=== PATIENT | female | born 1965 | race Caucasian/White ===

== ENCOUNTER 2017-02-05 10:03 | Emergency (ER) | payer SELFPAY ==
--- NOTE | 2017-02-05 11:02 | ER Document Report ---
ED Medical Screen (RME) - General Mode of Arrival: Ambulatory Information source: Patient TRAVEL OUTSIDE OF THE [place] IN LAST 30 DAYS: No <BELLA BYRD - Last Filed: 02/05/17 12:02> <CHRISTIANO REEDER - Last Filed: 02/05/17 15:58> - General Chief Complaint: Chest Pain > 30 Stated Complaint: CHEST PAIN Time Seen by Provider: 02/05/17 10:57 Notes: Patient reports upper abdominal pain off and on for 2 weeks with diarrhea for the last week. Patient also states she has had heart palpitations. Patient states she has had 3 days of chest pain and it hurts to touch her chest. Patient has a history of C. difficile. (BELLA BYRD) - Related Data Allergies/Adverse Reactions: No Known Allergies Allergy (Verified 02/05/17 10:51) Past Medical History - General Information source: Patient - Social History Cigarette use (# per day): Yes Chew tobacco use (# tins/day): No Frequency of alcohol use: None Drug Abuse: Marijuana Renal/ Medical History: Denies: Hx Peritoneal Dialysis Past Surgical History: Reports: Hx Abdominal Surgery - abdominoplasy, Hx Section, Hx Tubal Ligation - Immunizations Hx Diphtheria, Pertussis, Tetanus Vaccination: No <BELLA BYRD - Last Filed: 02/05/17 12:02> Review of Systems - Review of Systems Cardiovascular: See HPI, Palpitations Gastrointestinal: See HPI, Abdominal pain, Diarrhea <BELLA BYRD - Last Filed: 02/05/17 12:02> Physical Exam <BELLA BYRD - Last Filed: 02/05/17 12:02> <CHRISTIANO REEDER - Last Filed: 02/05/17 15:58> - Vital signs Vitals: Temp Pulse Resp BP Pulse Ox 99.0 F 78 18 126/81 H 100 02/05/17 10:29 02/05/17 10:29 02/05/17 10:29 02/05/17 10:29 02/05/17 10:29 - Notes Notes: Physical Exam: General: Alert, appears well. HEENT: Normocephalic. Atraumatic. PERRLA. Extraocular movements intact. Oropharynx clear. Neck: Supple. Respiratory: No respiratory distress. Abdominal: Minimal epigastric tenderness with palpation. No distension. Extremities: Moves all four extremities. Neurological: Normal cognition. AAOx4. Normal speech. Psychological: Normal affect. Normal Mood. Skin: Warm. Dry. Normal color. (BELLA BYRD) Course - Laboratory Result Diagrams: 02/05/17 11:12 02/05/17 11:12 <BELLA BYRD - Last Filed: 02/05/17 12:02> - Laboratory Result Diagrams: 02/05/17 11:12 02/05/17 11:12 <CHRISTIANO REEDER - Last Filed: 02/05/17 15:58> - Re-evaluation Re-evalutation: 02/05/17 14:19 The patient was stopping the nurses asking for pain medication. A later was told that she refused to try the Flagyl because she was concerned she would vomit it back up. Her urine specific gravity is (CHRISTIANO REEDER) - Vital Signs Vital signs: Temp Pulse Resp BP Pulse Ox 99.0 F 78 12 102/66 99 02/05/17 10:29 02/05/17 10:29 02/05/17 12:01 02/05/17 12:00 02/05/17 12:01 - Laboratory Laboratory results interpreted by me: 02/05/17 11:12 Glucose 71 L Doctor's Discharge <BELLA BYRD - Last Filed: 02/05/17 12:02> <CHRISTIANO REEDER - Last Filed: 02/05/17 15:58> - Discharge Clinical Impression: Clostridium difficile colitis, Chest wall pain, Muscle tension headache Condition: Stable Disposition: HOME, SELF-CARE Additional Instructions: C. (Clostridium) Difficile Infection: C. difficile bacteria are everywhere - in soil, air, water, human and animal feces, and on most surfaces. The bacteria don't create problems until they grow in abnormally large numbers in the intestinal tract of people taking antibiotics or other antimicrobial drugs. Then, C. difficile can cause symptoms ranging from diarrhea to life-threatening inflammations of the colon. According to the Centers for Disease Control and Prevention, each year in the [place] C. difficile is responsible for tens of thousands of cases of diarrhea and at least 5,000 deaths. And the problem is getting worse. The number of C. difficile infections doubled between 1992 and 2002, with most of the increase coming after 1999. Your intestinal tract contains hundreds of kinds of bacteria (intestinal silver). Many are essential, helping to synthesize certain vitamins and stimulating the immune system. And some play a mejia role in suppressing the growth of harmful organisms. But when you take an antibiotic to treat an infection, it often destroys these beneficial bacteria as well as the bacteria that's causing your illness. Without enough healthy bacteria, dangerous pathogens such as C. difficile can quickly grow out of control. Once it takes hold, C. difficile can produce two virulent toxins that attack the lining of the intestine. The toxins destroy cells and produce pseudomembranes - telltale patches (plaques) of inflammatory cells and decaying cellular debris on the interior surface of the colon. Almost any antibiotic can cause harmful bacteria to proliferate in the intestine, but ampicillin, amoxicillin, clindamycin, fluoroquinolones and cephalosporins are most often implicated in C. difficile infections. The use of broad-spectrum drugs that target a wide range of bacteria and the taking of antibiotics for a prolonged period increase the chance of infection. Other antimicrobials, including antiviral and antifungal drugs, and chemotherapy medications also can lead to an increased risk of infection with C. difficile. It's also a growing problem among otherwise healthy people. And although the infection can usually be controlled with antibiotics, virulent strains of C. difficile are now appearing that resist treatment with common medications. Chest Wall Pain: Your chest pain has been diagnosed as coming from the chest wall. This is often caused by straining the muscles or joints in the chest during physical activity, direct trauma, coughing, or vigorous vomiting. Persons with arthritis are especially prone to this type of pain, due to inflammation of the cartilage joints near the breast bone. Occasionally, no cause can be found. Rest from strenuous physical activity. This kind of chest pain is usually made worse by movement of the chest. Depending on the symptoms, we may recommend Motrin or Aleve for pain and antiinflammatory effects. Apply gentle warmth to the painful area for 15 minutes every hour or two. You should contact the doctor immediately if things change. Further evaluation is needed if you develop a fever or cough, if the nature of the pain changes, or if you become short of breath. Tension Headache: Your problem has been diagnosed as muscle tension headache. This very common type of headache occurs because of tightness in the muscles of the head and neck. The cause may be neck or jaw joint problems, but most commonly the cause is emotional stress. The headache may last hours or days. The treatment of uncomplicated tension headaches is rest and pain medication. Often, antiinflammatory pain medications are recommended, as these decrease the irritability of the painful tissues. Cold packs, or warm packs are sometimes helpful. Anti-anxiety medication or narcotics are best avoided in the long run. Your doctor has evaluated your headache problem, and finds no evidence of a serious health problem as a cause for the headache. If your headache becomes more severe, or if new symptoms develop (such as fever, stiff neck, vomiting, or decreasing alertness) you should be re-examined by the physician. TAKE THE MEDICATIONS PRESCRIBED. TAKE PRECAUTIONS TO PREVENT SPREAD OF THE C.-Diff FOLLOW UP WITH A LOCAL MEDICAL DOCTOR IF NOT IMPROVING. RETURN TO THE EMERGENCY ROOM IF ANY NEW OR WORSENING SYMPTOMS. Prescriptions: Metronidazole [Flagyl 500 mg Tablet] 500 mg PO TID #30 tablet Promethazine HCl [Phenergan 25 mg Tablet] 25 mg PO ASDIR PRN #15 tablet PRN Reason: For Nausea/Vomiting Scribe Documentation - Scribe Written by Hortensia:: Hortensia Flood, 02/05/2017 1220 acting as scribe for :: José Miguel <BELLA BYRD - Last Filed: 02/05/17 12:02>
[2017-02-05 11:33] LABS: ABSOLUTE BASOPHILS # (AUTO) 0.1 10^3/uL (0.0-0.2); ABSOLUTE EOSINOPHILS # (AUTO) 0.1 10^3/uL (0.0-0.6); ABSOLUTE LYMPHOCYTES (AUTO) 1.9 10^3/uL (0.5-4.7); ABSOLUTE MONOCYTES (AUTO) 0.5 10^3/uL (0.1-1.4); EOSINOPHILS % (AUTO) 1.1 % (0-6); HEMATOCRIT 38.3 % (36.0-47.0); HEMOGLOBIN 13.3 g/dL (12.0-15.5); HGB HCT DIFFERENCE 1.6; LYMPHOCYTES % (AUTO) 19.7 % (13-45); MEAN CORPUSCULAR HEMOGLOBIN 32.7 pg (27.0-33.4); MEAN CORPUSCULAR HGB CONC 34.8 g/dL (32.0-36.0); MEAN CORPUSCULAR VOLUME 94 fl (80-97); MONOCYTES % (AUTO) 5.3 % (3-13); RED BLOOD COUNT 4.08 10^6/uL (3.72-5.28); RED CELL DISTRIBUTION WIDTH 13.5 % (11.5-14.0); SEGMENTED NEUTROPHILS % (AUTO) 72.9 % (42-78); WHITE BLOOD COUNT 9.6 10^3/uL (4.0-10.5)
[2017-02-05 11:38] LABS: APPEARANCE,URINE SLIGHTLY-CLOUDY; BILIRUBIN,URINE NEGATIVE (NEGATIVE); GLUCOSE, URINE NEGATIVE (NEGATIVE); KETONES,URINE NEGATIVE (NEGATIVE); LEUKOCYTE ESTERASE,URINE NEGATIVE (NEGATIVE); NITRITE,URINE NEGATIVE (NEGATIVE); PROTEIN,URINE NEGATIVE (NEGATIVE); URINE SPECIFIC GRAVITY 1.002; UROBILINOGEN,URINE NEGATIVE mg/dL (<2.0)
[2017-02-05 11:44] LABS: ALANINE AMINOTRANSFERASE 38 U/L (9-52); ALBUMIN 4.6 g/dL (3.5-5.0); ALKALINE PHOSPHATASE 55 U/L (38-126); ANION GAP 13 (5-19); ASPARTATE AMINO TRANSFERASE 25 U/L (14-36); BILIRUBIN,DIRECT 0.3 mg/dL (0.0-0.4); BILIRUBIN,TOTAL 0.5 mg/dL (0.2-1.3); BLOOD UREA NITROGEN 10 mg/dL (7-20); CALCIUM 9.9 mg/dL (8.4-10.2); CARBON DIOXIDE 27 mmol/L (22-30); CHLORIDE 104 mmol/L (98-107); CREATININE RESULT 0.73 mg/dL (0.52-1.25); GLUCOSE 71 mg/dL (75-110); LIPASE 54.4 U/L (23-300); POTASSIUM 4.7 mmol/L (3.6-5.0); SODIUM 143.9 mmol/L (137-145); TOTAL PROTEIN 6.8 g/dL (6.3-8.2)
--- NOTE | 2017-02-05 12:58 | ER Document Report ---
ED General - General Mode of Arrival: Ambulatory Information source: Patient TRAVEL OUTSIDE OF THE [place] IN LAST 30 DAYS: No - HPI Patient complains to provider of: Diarrhea and abdominal pain Onset: Other - 2 weeks ago Associated symptoms: Other - see notes above <SONI TURNER - Last Filed: 02/05/17 13:32> <CHRISTIANO REEDER - Last Filed: 02/05/17 15:58> - General Chief Complaint: Chest Pain > 30 Stated Complaint: CHEST PAIN Time Seen by Provider: 02/05/17 10:57 Notes: 51 year old female with history of C. Diff presents to the ED complaining of diarrhea that started a little over 2 weeks ago and a burning abdominal pain that started 3 days ago. Patient states that her daughters have also been having symptoms of C. Diff over the past 2 weeks. Patient additionally complains of nausea, headache, and chest pain that started today. Patient states that the chest pain alarmed her and is why she came in. Patient has taken 15 mg oxycodone twice yesterday and once this morning. (SONI TURNER) - Related Data Allergies/Adverse Reactions: No Known Allergies Allergy (Verified 02/05/17 10:51) Past Medical History - General Information source: Patient - Social History Smoking Status: Current Every Day Smoker Cigarette use (# per day): Yes Chew tobacco use (# tins/day): No Frequency of alcohol use: None Drug Abuse: Marijuana Family History: Reviewed & Not Pertinent Patient has suicidal ideation: No Patient has homicidal ideation: No Renal/ Medical History: Denies: Hx Peritoneal Dialysis Past Surgical History: Reports: Hx Abdominal Surgery - abdominoplasy, Hx Section, Hx Tubal Ligation - Immunizations Hx Diphtheria, Pertussis, Tetanus Vaccination: No <SONI TURNER - Last Filed: 02/05/17 13:32> Review of Systems - Review of Systems Constitutional: No symptoms reported EENT: No symptoms reported Cardiovascular: See HPI, Chest pain Respiratory: No symptoms reported Gastrointestinal: See HPI, Abdominal pain, Diarrhea, Nausea Genitourinary: No symptoms reported Female Genitourinary: No symptoms reported Musculoskeletal: No symptoms reported Skin: No symptoms reported Hematologic/Lymphatic: No symptoms reported Neurological/Psychological: No symptoms reported -: Yes All other systems reviewed and negative <SONI TURNER - Last Filed: 02/05/17 13:32> Physical Exam - General General appearance: Alert In distress: None - HEENT Head: Atraumatic, Tenderness - frontal muscles. No: Normocephalic Eyes: Normal Extraocular movements intact: Yes Pupils: PERRL Neck: Other - posterior cervical muscles are minimally tender to palpate - Respiratory Respiratory status: No respiratory distress Chest status: Tender Breath sounds: Normal Chest palpation: Tender - left anterior chest wall is very tender. No: Normal - Cardiovascular Rhythm: Regular Heart sounds: Normal auscultation - Abdominal Inspection: Normal Distension: No distension Bowel sounds: Normal Tenderness: Nontender - Extremities General upper extremity: Normal inspection, Normal ROM General lower extremity: Normal inspection, Normal ROM - Neurological Neuro grossly intact: Yes - Psychological Associated symptoms: Normal affect, Normal mood - Skin Skin Temperature: Warm Skin Moisture: Dry Skin Color: Normal <SONI TURNER - Last Filed: 02/05/17 13:32> - Vital signs Vitals: Temp Pulse Resp BP Pulse Ox 99.0 F 78 18 126/81 H 100 02/05/17 10:29 02/05/17 10:29 02/05/17 10:29 02/05/17 10:29 02/05/17 10:29 Course - Laboratory Result Diagrams: 02/05/17 11:12 02/05/17 11:12 <SONI TURNER - Last Filed: 02/05/17 13:32> - Laboratory Result Diagrams: 02/05/17 11:12 02/05/17 11:12 <CHRISTIANO REEDER - Last Filed: 02/05/17 15:58> - Re-evaluation Re-evalutation: 02/05/17 14:20 The patient has been asking the nurse for pain medication. I was later informed that she refused to try the oral Flagyl out of concern she would vomit it back up. Her urine specific gravity is 1.002, and she has not been on any IV fluids. I will have the nurse start an IV to administer the antibiotics. (CHRISTIANO REEDER ) - Vital Signs Vital signs: Temp Pulse Resp BP Pulse Ox 99.0 F 78 12 102/66 99 02/05/17 10:29 02/05/17 10:29 02/05/17 12:01 02/05/17 12:00 02/05/17 12:01 - Laboratory Laboratory results interpreted by me: 02/05/17 11:12 Glucose 71 L Discharge <SONI TURNER - Last Filed: 02/05/17 13:32> <CHRISTIANO REEDER - Last Filed: 02/05/17 15:58> - Discharge Clinical Impression: Clostridium difficile colitis, Chest wall pain, Muscle tension headache Condition: Stable Disposition: HOME, SELF-CARE Additional Instructions: C. (Clostridium) Difficile Infection: C. difficile bacteria are everywhere - in soil, air, water, human and animal feces, and on most surfaces. The bacteria don't create problems until they grow in abnormally large numbers in the intestinal tract of people taking antibiotics or other antimicrobial drugs. Then, C. difficile can cause symptoms ranging from diarrhea to life-threatening inflammations of the colon. According to the Centers for Disease Control and Prevention, each year in the [place] C. difficile is responsible for tens of thousands of cases of diarrhea and at least 5,000 deaths. And the problem is getting worse. The number of C. difficile infections doubled between 1992 and 2002, with most of the increase coming after 1999. Your intestinal tract contains hundreds of kinds of bacteria (intestinal silver). Many are essential, helping to synthesize certain vitamins and stimulating the immune system. And some play a mejia role in suppressing the growth of harmful organisms. But when you take an antibiotic to treat an infection, it often destroys these beneficial bacteria as well as the bacteria that's causing your illness. Without enough healthy bacteria, dangerous pathogens such as C. difficile can quickly grow out of control. Once it takes hold, C. difficile can produce two virulent toxins that attack the lining of the intestine. The toxins destroy cells and produce pseudomembranes - telltale patches (plaques) of inflammatory cells and decaying cellular debris on the interior surface of the colon. Almost any antibiotic can cause harmful bacteria to proliferate in the intestine, but ampicillin, amoxicillin, clindamycin, fluoroquinolones and cephalosporins are most often implicated in C. difficile infections. The use of broad-spectrum drugs that target a wide range of bacteria and the taking of antibiotics for a prolonged period increase the chance of infection. Other antimicrobials, including antiviral and antifungal drugs, and chemotherapy medications also can lead to an increased risk of infection with C. difficile. It's also a growing problem among otherwise healthy people. And although the infection can usually be controlled with antibiotics, virulent strains of C. difficile are now appearing that resist treatment with common medications. Chest Wall Pain: Your chest pain has been diagnosed as coming from the chest wall. This is often caused by straining the muscles or joints in the chest during physical activity, direct trauma, coughing, or vigorous vomiting. Persons with arthritis are especially prone to this type of pain, due to inflammation of the cartilage joints near the breast bone. Occasionally, no cause can be found. Rest from strenuous physical activity. This kind of chest pain is usually made worse by movement of the chest. Depending on the symptoms, we may recommend Motrin or Aleve for pain and antiinflammatory effects. Apply gentle warmth to the painful area for 15 minutes every hour or two. You should contact the doctor immediately if things change. Further evaluation is needed if you develop a fever or cough, if the nature of the pain changes, or if you become short of breath. Tension Headache: Your problem has been diagnosed as muscle tension headache. This very common type of headache occurs because of tightness in the muscles of the head and neck. The cause may be neck or jaw joint problems, but most commonly the cause is emotional stress. The headache may last hours or days. The treatment of uncomplicated tension headaches is rest and pain medication. Often, antiinflammatory pain medications are recommended, as these decrease the irritability of the painful tissues. Cold packs, or warm packs are sometimes helpful. Anti-anxiety medication or narcotics are best avoided in the long run. Your doctor has evaluated your headache problem, and finds no evidence of a serious health problem as a cause for the headache. If your headache becomes more severe, or if new symptoms develop (such as fever, stiff neck, vomiting, or decreasing alertness) you should be re-examined by the physician. TAKE THE MEDICATIONS PRESCRIBED. TAKE PRECAUTIONS TO PREVENT SPREAD OF THE C.-Diff FOLLOW UP WITH A LOCAL MEDICAL DOCTOR IF NOT IMPROVING. RETURN TO THE EMERGENCY ROOM IF ANY NEW OR WORSENING SYMPTOMS. Prescriptions: Metronidazole [Flagyl 500 mg Tablet] 500 mg PO TID #30 tablet Promethazine HCl [Phenergan 25 mg Tablet] 25 mg PO ASDIR PRN #15 tablet PRN Reason: For Nausea/Vomiting Scribe Attestation: 02/05/17 14:00 I personally performed the services described in the documentation, reviewed and edited the documentation which was dictated to the scribe in my presence, and it accurately records my words and actions. (CHRISTIANO REEDER) Scribe Documentation - Scribe Written by Hortensia:: Hortensia Mesa, 02/05/2017 1307 acting as scribe for :: [place] <SONI TURNER - Last Filed: 02/05/17 13:32>
[2017-02-05] MEDS ORDERED: METRONIDAZOLE 500 MG TABLET PO ONE (13:00)
[2017-02-05] MEDS ORDERED: ONDANSETRON HCL INJ/PF 4 MG/2 ML SDV IV ONE ×2 (13:03→14:18)
--- NOTE | 2017-02-05 13:03 | EKG REPORT ---
SEVERITY:- BORDERLINE ECG - SINUS RHYTHM PROBABLE LEFT ATRIAL ABNORMALITY : Confirmed by: Mulugeta Francis MD 05-Feb-2017 13:02:51
[2017-02-05] MEDS ORDERED: ONDANSETRON 4 MG TAB.RAPDIS PO ONE (13:26)
[2017-02-05] MEDS ORDERED: OXYCODONE-ACETAMINOPHEN 5-325 MG TABLET PO ONE (14:12)
[2017-02-05] MEDS ORDERED: METRONIDAZOLE 500 MG/NS RTU 100 ML IV ONE (14:18)
[2017-02-05] MEDS ORDERED: KETOROLAC TROMETHAMINE INJ/PF 30 MG/1 ML SDV IV ONE (14:18)
[2017-02-05 16:51] VITALS: BP 127/78
== END 2017-02-05 16:44 | disposition home or self-care (01) ==
LOC: ER 10:03
DX: A04.72 Enterocolitis due to Clostridium difficile, not specified as recurrent (principal); G44.209 Tension-type headache, unspecified, not intractable; R07.89 Other chest pain; R10.9 Unspecified abdominal pain; F17.210 Nicotine dependence, cigarettes, uncomplicated; Z98.51 Tubal ligation status
CPT/HCPCS: 93005; 99285; 96375; 96365; 36415; 83690; 85025; 80053; 81001; 84484; 87493; 93010; S0119; J1885; J2405

== ENCOUNTER 2018-06-16 21:30 | Emergency (ER) | payer SELFPAY ==
[2018-06-16] MEDS ORDERED: NORMAL SALINE 1000 ML 1,000 ML IV ONE (22:03)
[2018-06-16] MEDS ORDERED: OXYCODONE-ACETAMINOPHEN 5-325 MG TABLET PO ONE (22:04)
--- NOTE | 2018-06-16 22:07 | ER Document Report ---
ED Medical Screen (RME) - General Chief Complaint: Nausea/Vomiting/Diarrhea Stated Complaint: NAUSEA,VOMITNG Time Seen by Provider: 06/16/18 22:03 Notes: 52-year-old female coming in today with chief complaint of severe abdominal discomfort and diarrhea. She reports history of C. difficile colitis in the past. States the diarrhea and the pain is similar. Also epigastric and right upper quadrant pain that radiates through to her back which is not typical for anything she has had before. She does not have any fevers or shaking chills. I have treated and performed a rapid initial assessment of this patient. A comprehensive ED assessment and evaluation of the patient, analysis of test results and completion of medical decision making process will be conducted by additional ED providers. PHYSICAL EXAMINATION: GENERAL: Well-appearing, well-nourished and in no acute distress. A&Ox4. Appears uncomfortable LUNGS: Breath sounds clear to auscultation bilaterally and equal. No wheezes rales or rhonchi. HEART: Regular rate and rhythm without murmurs, rubs, gallops. ABDOMEN: Epigastric and right upper quadrant tenderness TRAVEL OUTSIDE OF THE [place] IN LAST 30 DAYS: No - Related Data Allergies/Adverse Reactions: No Known Allergies Allergy (Verified 02/05/17 10:51) Past Medical History - Social History Chew tobacco use (# tins/day): No Frequency of alcohol use: None Drug Abuse: Marijuana Renal/ Medical History: Denies: Hx Peritoneal Dialysis Past Surgical History: Reports: Hx Abdominal Surgery - abdominoplasy, Hx Section, Hx Tubal Ligation - Immunizations Hx Diphtheria, Pertussis, Tetanus Vaccination: No Physical Exam - Vital signs Vitals: Temp Pulse Resp BP Pulse Ox 97.7 F 70 16 127/84 H 100 06/16/18 21:37 06/16/18 21:37 06/16/18 21:37 06/16/18 21:37 06/16/18 21:37 Course - Vital Signs Vital signs: Temp Pulse Resp BP Pulse Ox 97.7 F 70 16 127/84 H 100 06/16/18 21:37 06/16/18 21:37 06/16/18 21:37 06/16/18 21:37 06/16/18 21:37
[2018-06-16 23:22] LABS: ABSOLUTE BASOPHILS # (AUTO) 0.1 10^3/uL (0.0-0.2); ABSOLUTE EOSINOPHILS # (AUTO) 0.2 10^3/uL (0.0-0.6); ABSOLUTE LYMPHOCYTES (AUTO) 2.8 10^3/uL (0.5-4.7); ABSOLUTE MONOCYTES (AUTO) 0.5 10^3/uL (0.1-1.4); ABSOLUTE NEUT (AUTO) 5.2 10^3/uL (1.7-8.2); BASOPHILS % (AUTO) 0.8 % (0-2); HEMATOCRIT 36.6 % (36.0-47.0); HEMOGLOBIN 12.8 g/dL (12.0-15.5); LYMPHOCYTES % (AUTO) 32.3 % (13-45); MEAN CORPUSCULAR HEMOGLOBIN 33.6 pg (27.0-33.4); MEAN CORPUSCULAR HGB CONC 34.9 g/dL (32.0-36.0); MEAN CORPUSCULAR VOLUME 96 fl (80-97); MONOCYTES % (AUTO) 5.8 % (3-13); PLATELET COUNT 356 10^3/uL (150-450); RED CELL DISTRIBUTION WIDTH 13.8 % (11.5-14.0); SEGMENTED NEUTROPHILS % (AUTO) 59.1 % (42-78); TOTAL CELLS COUNTED % (AUTO) 100 %; WHITE BLOOD COUNT 8.8 10^3/uL (4.0-10.5)
[2018-06-16 23:30] LABS: APPEARANCE,URINE CLEAR; BILIRUBIN,URINE NEGATIVE (NEGATIVE); COLOR,URINE STRAW; GLUCOSE, URINE NEGATIVE (NEGATIVE); KETONES,URINE NEGATIVE (NEGATIVE); LEUKOCYTE ESTERASE,URINE NEGATIVE (NEGATIVE); NITRITE,URINE NEGATIVE (NEGATIVE); PROTEIN,URINE NEGATIVE (NEGATIVE); URINE SPECIFIC GRAVITY 1.006; UROBILINOGEN,URINE NEGATIVE mg/dL (<2.0)
[2018-06-16 23:45] LABS: ALANINE AMINOTRANSFERASE 28 U/L (9-52); ALBUMIN 4.7 g/dL (3.5-5.0); ALKALINE PHOSPHATASE 75 U/L (38-126); ANION GAP 8 (5-19); ASPARTATE AMINO TRANSFERASE 33 U/L (14-36); BILIRUBIN,DIRECT 0.1 mg/dL (0.0-0.4); BILIRUBIN,TOTAL 0.4 mg/dL (0.2-1.3); BLOOD UREA NITROGEN 22 mg/dL (7-20); CARBON DIOXIDE 28 mmol/L (22-30); CHLORIDE 103 mmol/L (98-107); GLUCOSE 87 mg/dL (75-110); LIPASE 219.3 U/L (23-300); POTASSIUM 4.4 mmol/L (3.6-5.0); SODIUM 138.5 mmol/L (137-145); TOTAL PROTEIN 6.9 g/dL (6.3-8.2)
--- NOTE | 2018-06-17 00:59 | ER Document Report ---
ED General - General Chief Complaint: Nausea/Vomiting/Diarrhea Stated Complaint: NAUSEA,VOMITNG Time Seen by Provider: 06/16/18 22:03 Notes: Patient is a 52-year-old female with a past medical history of recurrent C. difficile of unclear etiology, presents with 4 days of nausea, vomiting, diarrhea and right upper quadrant abdominal pain. States the pain is mostly present around episodes of diarrhea or vomiting. States that nothing seems to improve her symptoms. States this does feel somewhat similar to when she had C. difficile colitis in the past. She does not currently have a primary care physician. She denies fever but states that she does feel cold and hot sometimes as well as having associated diaphoresis. She describes the abdominal pain as being aching, cramping pain. Moderate to severe in intensity. Has had a hysterectomy but no other abdominal surgeries. TRAVEL OUTSIDE OF THE [place] IN LAST 30 DAYS: No - Related Data Allergies/Adverse Reactions: No Known Allergies Allergy (Verified 02/05/17 10:51) Past Medical History - General Information source: Patient - Social History Smoking Status: Former Smoker Chew tobacco use (# tins/day): No Frequency of alcohol use: None Drug Abuse: Marijuana Family History: Reviewed & Not Pertinent Patient has suicidal ideation: No Patient has homicidal ideation: No Renal/ Medical History: Denies: Hx Peritoneal Dialysis Past Surgical History: Reports: Hx Abdominal Surgery - abdominoplasy, Hx Honorio an Section, Hx Tubal Ligation - Immunizations Hx Diphtheria, Pertussis, Tetanus Vaccination: No Review of Systems - Review of Systems Notes: Constitutional: Negative for fever. HENT: Negative for sore throat. Eyes: Negative for visual changes. Cardiovascular: Negative for chest pain. Respiratory: Negative for shortness of breath. Gastrointestinal: Positive for abdominal pain, vomiting and diarrhea Genitourinary: Negative for dysuria. Musculoskeletal: Negative for back pain. Skin: Negative for rash. Neurological: Negative for headaches, weakness or numbness. 10 point ROS negative except as marked above and in HPI. Physical Exam - Vital signs Vitals: Temp Pulse Resp BP Pulse Ox 97.7 F 70 16 127/84 H 100 06/16/18 21:37 06/16/18 21:37 06/16/18 21:37 06/16/18 21:37 06/16/18 21:37 Interpretation: Normal Notes: PHYSICAL EXAMINATION: GENERAL: Well-appearing, well-nourished and in no acute distress. HEAD: Atraumatic, normocephalic. EYES: Pupils equal round and reactive to light, extraocular movements intact, sclera anicteric, conjunctiva are normal. ENT: nares patent, oropharynx clear without exudates. Moderately dry mucous membranes. NECK: Normal range of motion, supple without lymphadenopathy LUNGS: Breath sounds clear to auscultation bilaterally and equal. No wheezes rales or rhonchi. HEART: Regular rate and rhythm without murmurs ABDOMEN: Soft, mild diffuse tenderness most localized to the right upper quadrant, normoactive bowel sounds. No guarding, no rebound. No masses appreciated. EXTREMITIES: Normal range of motion, no pitting or edema. No cyanosis. NEUROLOGICAL: No focal neurological deficits. Moves all extremities spontaneously and on command. PSYCH: Moderately anxious SKIN: Warm, Dry, normal turgor, no rashes or lesions noted. Course - Re-evaluation Re-evalutation: 06/17/18 00:57 Patient presents with 5 days of nausea, vomiting, diarrhea and right upper quadrant abdominal pain. Has a history of recurrent C. difficile undetermined etiology. On exam the patient is overall well in appearance, no acute distress, vitals within acceptable limits at the time of my initial evaluation. Patient has some mild right upper quadrant abdominal tenderness on exam but no other localized areas of tenderness. No rebound or guarding. She has been unable to produce a stool sample here in the emergency department. Tolerating oral intake without difficulty. Will obtain a right upper quadrant ultrasound to exclude biliary pathology. Initial labs otherwise unremarkable. 06/17/18 02:55 Right upper quadrant ultrasound unremarkable. Patient symptoms otherwise improved. She has not been able to have a bowel movement while here in the emergency department. The patient and I have elected to proceed with an empiric treatment using Flagyl which could also cover for a nonspecific colitis given the duration of her symptoms. At this time will discharge with return precautions and follow-up recommendations. Verbal discharge instructions given a the bedside and opportunity for questions given. Medication warnings reviewed. Patient is in agreement with this plan and has verbalized understanding of return precautions and the need for primary care follow-up in the next 24-72 hours. - Vital Signs Vital signs: Temp Pulse Resp BP Pulse Ox 97.9 F 63 20 113/82 100 06/17/18 01:08 06/17/18 01:08 06/17/18 01:08 06/17/18 01:08 06/17/18 01:08 - Laboratory Result Diagrams: 06/16/18 23:00 06/16/18 23:00 Laboratory results interpreted by me: 06/16/18 06/16/18 06/16/18 23:00 23:00 23:00 MCH 33.6 H BUN 22 H Urine Blood SMALL H - Diagnostic Test Radiology reviewed: Reports reviewed Discharge - Discharge Clinical Impression: Nausea vomiting and diarrhea, Upper abdominal pain Condition: Good Disposition: HOME, SELF-CARE Additional Instructions: Your ultrasound and labs are reassuring today. Unfortunately, you have been unable to provide a stool sample here in the emergency department. After our conversation we elected to proceed with empiric treatment using antibiotics for coverage of possible C. difficile colitis or an alternative bacterial colitis. Please return if you develop severe abdominal pain, pass out, develop a fever greater than 100.4 F, become unable to tolerate any oral fluids for 12 more hours, or any other symptoms that are concerning to you. Please follow-up with your primary care physician within next 24-48 hours. Prescriptions: Metronidazole [Flagyl 500 mg Tablet] 500 mg PO Q6H #28 tablet
[2018-06-17] MEDS ORDERED: KETOROLAC TROMETHAMINE INJ/PF 30 MG/1 ML SDV IV ONE (01:46)
--- NOTE | 2018-06-17 02:40 | RADIOLOGY REPORT (SQ) ---
EXAM DESCRIPTION: US ABDOMEN LIMITED COMPLETED DATE/TME: 06/17/2018 00:56 CLINICAL HISTORY: 52 years, Female, ruq pain, n/v COMPARISON: None. TECHNIQUE: Limited right upper quadrant ultrasound LIMITATIONS: None. FINDINGS: The liver is homogenous in echotexture without focal lesion. No gallstones or gallbladder wall thickening. Visualized right kidney and pancreas are unremarkable. CBD measures 4.8 mm. There is no ascites visualized abdominal aorta are unremarkable. IMPRESSION: Unremarkable exam copyright 2010 [employer]- All Rights Reserved
[2018-06-17] MEDS ORDERED: ONDANSETRON ODT 4 MG TAB (6 TAB/ER DISP) PO PRN (02:56)
[2018-06-17] MEDS ORDERED: METRONIDAZOLE 500 MG TABLET PO ONE (02:56)
[2018-06-17 03:02] VITALS: BP 107/64
== END 2018-06-17 03:13 | disposition home or self-care (01) ==
LOC: ER 21:30
DX: R11.2 Nausea with vomiting, unspecified (principal); R19.7 Diarrhea, unspecified; R10.11 Right upper quadrant pain; R61 Generalized hyperhidrosis; Z87.891 Personal history of nicotine dependence
CPT/HCPCS: 99284; 96361; 96374; 36415; 83690; 85025; 80053; 81001; 76705; J1885; J7030

== ENCOUNTER 2019-05-09 09:10 | Emergency (ER) | payer SELFPAY ==
[2019-05-09 10:19] LABS: ABSOLUTE EOSINOPHILS # (AUTO) 0.1 10^3/uL (0.0-0.6); ABSOLUTE LYMPHOCYTES (AUTO) 1.9 10^3/uL (0.5-4.7); ABSOLUTE MONOCYTES (AUTO) 0.4 10^3/uL (0.1-1.4); ABSOLUTE NEUT (AUTO) 5.5 10^3/uL (1.7-8.2); BASOPHILS % (AUTO) 0.5 % (0-2); EOSINOPHILS % (AUTO) 0.9 % (0-6); HEMATOCRIT 39.3 % (36.0-47.0); HEMOGLOBIN 13.6 g/dL (12.0-15.5); LYMPHOCYTES % (AUTO) 24.1 % (13-45); MEAN CORPUSCULAR HEMOGLOBIN 33.5 pg (27.0-33.4); MEAN CORPUSCULAR HGB CONC 34.7 g/dL (32.0-36.0); MEAN CORPUSCULAR VOLUME 97 fl (80-97); MONOCYTES % (AUTO) 4.9 % (3-13); PLATELET COUNT 367 10^3/uL (150-450); RED BLOOD COUNT 4.07 10^6/uL (3.72-5.28); RED CELL DISTRIBUTION WIDTH 13.4 % (11.5-14.0); SEGMENTED NEUTROPHILS % (AUTO) 69.6 % (42-78); TOTAL CELLS COUNTED % (AUTO) 100 %; WHITE BLOOD COUNT 7.9 10^3/uL (4.0-10.5)
[2019-05-09 10:30] LABS: APPEARANCE,URINE CLEAR; BILIRUBIN,URINE NEGATIVE (NEGATIVE); COLOR,URINE STRAW; GLUCOSE, URINE NEGATIVE (NEGATIVE); KETONES,URINE NEGATIVE (NEGATIVE); LEUKOCYTE ESTERASE,URINE NEGATIVE (NEGATIVE); NITRITE,URINE NEGATIVE (NEGATIVE); PROTEIN,URINE NEGATIVE (NEGATIVE); URINE SPECIFIC GRAVITY 1.003; UROBILINOGEN,URINE NEGATIVE mg/dL (<2.0)
[2019-05-09 10:39] LABS: ALKALINE PHOSPHATASE 71 U/L (38-126); ANION GAP 11 (5-19); ASPARTATE AMINO TRANSFERASE 30 U/L (14-36); BILIRUBIN,DIRECT 0.3 mg/dL (0.0-0.4); BILIRUBIN,TOTAL 0.8 mg/dL (0.2-1.3); BLOOD UREA NITROGEN 16 mg/dL (7-20); CALCIUM 10.7 mg/dL (8.4-10.2); CARBON DIOXIDE 27 mmol/L (22-30); CHLORIDE 101 mmol/L (98-107); GLUCOSE 86 mg/dL (75-110); POTASSIUM 4.4 mmol/L (3.6-5.0); TOTAL PROTEIN 8.2 g/dL (6.3-8.2)
--- NOTE | 2019-05-09 11:32 | ER Document Report ---
Entered by ROSALIA ADORNO SCRIBE 05/09/19 1108 Acting as scribe for:CHRISTIANO REEDER MD ED GI/ - General Chief Complaint: Abdominal Pain Stated Complaint: ABDOMINAL PAIN Time Seen by Provider: 05/09/19 11:06 Mode of Arrival: Ambulatory Information source: Patient Notes: This 53 year old female patient with a history of C-diff presents to the ED today with complaints of severe LUQ pain that began x4 days ago. Patient states that the symptoms have gotten progressively worse since onset and that the pain is exacerbated by eating. Patient reports nausea, diarrhea, diaphoresis, and chills, but denies vomiting. Patient states that she had had diarrhea (x4-5/day) for the past x2 weeks which has become her new baseline because of the C-diff, but states that the consistency of her stool is changing dramatically from "liquid to mucus". Patient notes that the abdominal pain seems to radiate to her left shoulder and elbow and that she has been having trouble sleeping. TRAVEL OUTSIDE OF THE [place] IN LAST 30 DAYS: No - Related Data Allergies/Adverse Reactions: No Known Allergies Allergy (Verified 05/09/19 09:48) Past Medical History - General Information source: Patient, [facility] Records - Social History Smoking Status: Former Smoker - quit x26 years ago Cigarette use (# per day): No Chew tobacco use (# tins/day): No Smoking Education Provided: No Frequency of alcohol use: Social Drug Abuse: Other - CBD Occupation: unemployed Lives with: Spouse/Significant other Family History: Reviewed & Not Pertinent Patient has suicidal ideation: No Patient has homicidal ideation: No Infectious Medical History: Reports: Hx C-Diff Past Surgical History: Reports: Hx Abdominal Surgery - abdominoplasy, Hx Section, Hx Tubal Ligation - Immunizations Hx Diphtheria, Pertussis, Tetanus Vaccination: No Review of Systems - Review of Systems Constitutional: See HPI, Chills, Diaphoresis EENT: No symptoms reported Cardiovascular: No symptoms reported Respiratory: No symptoms reported Gastrointestinal: See HPI, Abdominal pain, Diarrhea, Nausea. denies: Vomiting Genitourinary: No symptoms reported Female Genitourinary: No symptoms reported Musculoskeletal: See HPI, Other - Shoulder and elbow pain Skin: No symptoms reported Hematologic/Lymphatic: No symptoms reported Neurological/Psychological: No symptoms reported -: Yes All other systems reviewed and negative Physical Exam - Vital signs Vitals: Temp Pulse Resp BP Pulse Ox 98.6 F 69 22 H 153/85 H 100 05/09/19 09:29 05/09/19 09:29 05/09/19 09:29 05/09/19 09:29 05/09/19 09:29 - General General appearance: Alert, Anxious, Other - Shaky - HEENT Head: Normocephalic, Atraumatic Eyes: Normal Pupils: PERRL - Respiratory Respiratory status: No respiratory distress Chest status: Nontender Breath sounds: Normal Chest palpation: Normal - Cardiovascular Rhythm: Regular Heart sounds: Normal auscultation Murmur: No - Abdominal Inspection: Obese Distension: No distension Bowel sounds: Hypoactive - Decreased bowels sounds, almost none auscultated. Tenderness: Tender - LUQ and epigastrium tenderness with palpation, Other - Abdomen soft Organomegaly: No organomegaly - Back Back: Normal, Nontender - Extremities General upper extremity: Normal inspection General lower extremity: Normal inspection - Neurological Neuro grossly intact: Yes - Psychological Associated symptoms: Anxious - Skin Skin Temperature: Warm Skin Moisture: Dry Skin Color: Normal Course - Vital Signs Vital signs: Temp Pulse Resp BP Pulse Ox 98.6 F 69 22 H 153/85 H 100 05/09/19 09:29 05/09/19 09:29 05/09/19 09:29 05/09/19 09:29 05/09/19 09:29 - Laboratory Result Diagrams: 05/09/19 10:00 05/09/19 10:00 Laboratory results interpreted by me: 05/09/19 05/09/19 10:00 10:00 MCH 33.5 H Calcium 10.7 H - Diagnostic Test Radiology reviewed: Image reviewed, Reports reviewed - Acute abdominal series shows left mid epigastric distended small bowel loops with air-fluid levels. CT scan of the abdomen pelvis with IV and oral contrast does not show any acute abnormalities. Contrast goes all the way through. Discharge - Discharge Clinical Impression: Enteritis Condition: Stable Disposition: HOME, SELF-CARE Additional Instructions: Gastroenteritis You most likely have gastroenteritis. This is an irritation of the stomach and intestinal tract. It's usually caused by a virus, but can also be caused by bacteria, toxins that cause food poisoning, or excessive alcohol intake. Symptoms may include fever, painful abdominal cramps, nausea, vomiting, and diarrhea. Start with small amounts (two to six ounces) of clear liquids (soft drinks, herb teas, broth, etc). Try to take fluids frequently even if you are vomiting, to prevent dehydration. When liquids are being consumed successfully, advance to small amounts of bland food (mashed potato, toast) for 6 - 12 hours. Gastroenteritis rarely requires medication. It goes away by itself. Use good handwashing so you don't spread germs. Wash underwear in very hot water. If symptoms are severe, talk to the doctor. Call your physician if blood appears in your vomitus or stool, if vomiting lasts longer than 24 hours, if the abdominal pain worsens or becomes localized to one area, or if you develop high fever. Take medications as prescribed for nausea and abdominal cramping as needed. Drink small sips of cool clear liquids throughout the day in the evening. Follow-up with a local primary care provider if not improving. RETURN TO THE EMERGENCY ROOM IF ANY NEW OR WORSENING SYMPTOMS. Prescriptions: Dicyclomine HCl [Bentyl 20 mg Tablet] 20 mg PO QID PRN #20 tablet PRN Reason: Abdominal Cramping Ondansetron [Zofran Odt 4 mg Tablet] 1 - 2 tab PO Q4H #10 tab.shruthi Bazan Attestation: 05/09/19 13:13 I personally performed the services described in the documentation, reviewed and edited the documentation which was dictated to the scribe in my presence, and it accurately records my words and actions. I personally performed the services described in the documentation, reviewed and edited the documentation which was dictated to the scribe in my presence, and it accurately records my words and actions.
--- NOTE | 2019-05-09 13:01 | RADIOLOGY REPORT (SQ) ---
EXAM DESCRIPTION: ACUTE ABDOMEN SERIES COMPLETED DATE/TIME: 05/09/2019 12:42 pm REASON FOR STUDY: LUQ abd pain COMPARISON: None. NUMBER OF VIEWS: Three views. TECHNIQUE: Frontal chest, supine abdomen and upright abdomen radiographic images acquired. LIMITATIONS: None. FINDINGS: CHEST: Lungs clear of infiltrates. Cardiac silhouette size, inga unremarkable. Azygos lo be, an anatomic variant. FREE AIR: None. No abnormal gas collections. BOWEL GAS PATTERN: Abnormal but nonspecific bowel gas pattern. On the upright view, air-fluid levels in mildly dilated mid epigastric small bowel loops are present. This could represent early or parti al small bowel obstruction or developing ileus. Stomach, colon decompressed. CALCIFICATIONS: No suspicious calcifications. HARDWARE: None in the abdomen. SOFT TISSUES: No gross mass or suggestion of organomegaly. BONES: Degenerative disc changes and facet arthropathy lower lumbar spine OTHER: No other significant finding. IMPRESSION: Abnormal but nonspecific bowel gas pattern, with air fluid levels in mid epigastric dist ended small bowel loops. TECHNICAL DOCUMENTATION: JOB ID: [id number] [employer]- All Rights Reserved Reading location - IP/workstation name: [email or web address]
[2019-05-09] MEDS ORDERED: DEXTROSE 5%-LACTATED RINGERS 1,000 ML IV ONE (13:09)
[2019-05-09] MEDS ORDERED: MORPHINE SULFATE 10 MG/ML INJ IV ONE (13:09)
[2019-05-09] MEDS ORDERED: ONDANSETRON HCL INJ/PF 4 MG/2 ML SDV IV ONE (13:09)
[2019-05-09 14:55] LABS: C DIFFICILE GDH NEGATIVE (NEGATIVE)
--- NOTE | 2019-05-09 16:43 | RADIOLOGY REPORT (SQ) ---
EXAM DESCRIPTION: CT ABD/PELVIS WITH IV ORAL COMPLETED DATE/TIME: 05/09/2019 3:45 pm REASON FOR STUDY: Multi dilated loops sm bowel with air-fluid levels COMPARISON: Three-way abdomen series 05/09/2019 TECHNIQUE: CT scan of the abdomen and pelvis performed using helical scanning technique with dynamic intravenous contrast injection. Patient drank oral contrast. Images reviewed with lung, soft tissue , and bone windows. Reconstructed coronal and sagittal MPR images reviewed. Delayed images for evalua tion of the urinary system also acquired. All images stored on PACS. All CT scanners at this facility use dose modulation, iterative reconstruction, and/or weight based d osing when appropriate to reduce radiation dose to as low as reasonably achievable (ALARA). [facility]: Dose Right [facility]: CareDose [facility]: Dose Right [facility]: Teradose 4D [facility]: Collax CONTRAST TYPE AND DOSE: contrast/concentration: Isovue 350.00 mg/ml; Total Contrast Delivered: 87.0 ml; Total Saline Delivered: 44.2 ml RENAL FUNCTION: Creatinine 0.7 RADIATION DOSE: CT Rad equipment meets quality standard of care and radiation dose reduction techniq ues were employed. CTDIvol: 15.7 - 18.2 mGy. DLP: 1916 mGy-cm.. LIMITATIONS: None. FINDINGS: LOWER CHEST: No significant findings. No nodules or infiltrates. LIVER: Normal size. No masses. No dilated ducts. SPLEEN: Normal size. No focal lesions. PANCREAS: No masses. No significant calcifications. No adjacent inflammation or peripancreatic fluid collections. Pancreatic duct not dilated. GALLBLADDER: No identified stones by CT criteria. No inflammatory changes to suggest cholecystitis. ADRENAL GLANDS: No significant masses or asymmetry. RIGHT KIDNEY AND URETER: No solid masses. No significant calcifications. No hydronephrosis or hyd roureter. LEFT KIDNEY AND URETER: No solid masses. subcentimeter cyst left upper pole kidney. No significant calcifications. No hydronephrosis or hydroureter. AORTA AND VESSELS: No aneurysm. No dissection. Renal arteries, SMA, celiac without stenosis. RETROPERITONEUM: No retroperitoneal adenopathy, hemorrhage or masses. BOWEL AND PERITONEAL CAVITY: Patient drank oral contrast. No CT evidence of free intraperitoneal air or fluid. No T CT signs of bowel obstruction, oral contrast bypasses small bowel loops and enters t he ascending colon. No CT evidence abscess or diverticulitis. There are scattered descending and si gmoid colon diverticuli without inflammation. APPENDIX: Normal. PELVIS: No mass. No free fluid. Normal bladder. Normal size female pelvic organs ABDOMINAL WALL: No masses. No hernias. BONES: Degenerative changes lower lumbar spine OTHER: No other significant finding. IMPRESSION: No CT evidence of bowel obstruction. Colonic diverticuli without CT signs of acute dive rticulitis Findings discussed with Dr. Ritter TECHNICAL DOCUMENTATION: JOB ID: [id number] Quality ID # [id number]: Final reports with documentation of one or more dose reduction techniques (e.g., Au tomated exposure control, adjustment of the mA and/or kV according to patient size, use of iterative reconstruction technique) 2010 [employer]- All Rights Reserved Reading location - IP/workstation name: [email or web address]
[2019-05-09 16:52] VITALS: BP 138/77
== END 2019-05-09 16:52 | disposition home or self-care (01) ==
LOC: ER 09:10
DX: K52.9 Noninfective gastroenteritis and colitis, unspecified (principal); R10.12 Left upper quadrant pain; R11.0 Nausea; R61 Generalized hyperhidrosis; R68.83 Chills (without fever); F19.10 Other psychoactive substance abuse, uncomplicated; R10.812 Left upper quadrant abdominal tenderness; R10.816 Epigastric abdominal tenderness; M25.519 Pain in unspecified shoulder; M25.529 Pain in unspecified elbow; Z87.891 Personal history of nicotine dependence
CPT/HCPCS: 99284; 96361; 96374; 96375; 36415; 87045; 89055; 87205; 83690; 85025; 80053; 81001; 87324; 87449; 74022; 74177; J2270; J2405; J7121